=== PATIENT | female | born 1975 | race Caucasian/White ===

== ENCOUNTER 2020-03-22 22:31 | Observation (INO) ==
[2020-03-23] MEDS ORDERED: 0.9 % Sodium Chloride 1,000 ML IVC ONE (00:49)
[2020-03-23] MEDS ORDERED: *HR* FentaNYL (PF) 100 MCG/2 ML VIAL IVP ONE ×2 (01:00→05:44)
[2020-03-23 01:01] LABS: Bilirubin,Urine Negative (Negative); Blood,Urine Negative (Negative); Clarity,Urine Clear (Clear); Color,Urine Light-Yellow (Yellow); Glucose,Urine (UA) Normal (Normal); Ketones,Urine Negative (Negative); Leukocyte Esterase,Urine Negative (Negative); Nitrite,Urine Negative (Negative); Protein,Urine Trace mg/dL (Neg-Trace); Urobilinogen,Urine Normal (Normal)
[2020-03-23] MEDS ORDERED: Ondansetron 4 MG/2 ML VIAL IVP ONE (01:01)
[2020-03-23 01:12] LABS: Alanine Aminotransferase 14 Units/L (7-52); Albumin 4.3 g/dL (3.5-5.7); Albumin/Globulin Ratio 1.5 (1.1-2.2); Alkaline Phosphatase 43 Units/L (34-104); Aspartate Amino Transferase 17 Units/L (13-39); BUN/Creatinine Ratio 32 (6-26); Bilirubin,Indirect 0.2 mg/dL (0.0-1.0); Bilirubin,Total 0.2 mg/dL (0.3-1.0); Blood Urea Nitrogen 23 mg/dL (6-20); Calcium 9.5 mg/dL (8.6-10.3); Carbon Dioxide 28 mEq/L (23-29); Chloride 107 mEq/L (98-107); Globulin 2.8 g/dL (2.4-3.5); Glucose 95 mg/dL (70-105); Lipase 39 Units/L (11-82); Osmolality,Calculated 291 (280-300); Potassium 3.6 mEq/L (3.5-5.1); Sodium 139 mEq/L (136-145); Total Protein 7.1 g/dL (6.4-8.9); eGFR For African Americans > 60 (> 60); eGFR For Non-African Americans > 60 (> 60)
[2020-03-23] MEDS ORDERED: Isovue-370 500 ML BOTTLE IVP ONE (01:20)
[2020-03-23 01:22] LABS: Basophils # 0.1 K/mcL (0.0-0.2); Basophils % 0.8 %; Eosinophils # 0.7 K/mcL (0.0-0.6); Eosinophils % 5.3 %; Hematocrit 43.8 % (35.3-44.9); Hemoglobin 14.6 g/dL (11.5-15.4); Immature Granulocytes % 0.4 % (0-4); Mean Corpuscular HGB Conc 33.3 g/dL (31.6-35.5); Mean Corpuscular Hemoglobin 30.3 pg (28.0-33.3); Mean Corpuscular Volume 90.9 fL (83.0-100.0); Mean Platelet Volume 10.6 fL (9.4-12.4); Monocytes # 0.8 K/mcL (0.0-1.3); Neutrophils # 7.7 K/mcL (1.6-8.9); Platelet Count 309 K/mcL (140-400); Red Blood Count 4.82 M/mcL (3.82-4.97); Red Cell Distribution Width 13.5 % (11.5-14.5); Segmented Neutrophils % 57.5 %; White Blood Count 13.4 K/mcL (4.3-11.1)
[2020-03-23 01:54] LABS: Platelet Estimate Normal (Normal); Reactive Lymphocytes Present (Not Present)
[2020-03-23] MEDS ORDERED: Ondansetron 4 MG/2 ML VIAL IVP PRN (07:40)
[2020-03-23] MEDS ORDERED: Naloxone 0.4 MG/ML INJ IVP PRN (07:40)
[2020-03-23] MEDS ORDERED: *HR* OxyCODONE Immed Rel 5 MG TABLET PO PRN (07:40)
[2020-03-23] MEDS: *HR* HYDROcodone/Acet 5/325 mg TABLET PO PRN ×2 (09:57→20:53)
[2020-03-23] MEDS: Ringers Solution, Lactated 1,000 ML IVC SCH ×2 (09:58→20:52)
[2020-03-23 11:50] LABS: C-Reactive Protein < 5 mg/L (Less than 10)
[2020-03-23] MEDS ORDERED: MethylPREDNISolone 40 MG/ML VIAL IVP SCH (12:19)
[2020-03-23] MEDS ORDERED: methylPREDNISolone 125 MG/2 ML VIAL IVP ONE (12:29)
[2020-03-23] MEDS: Pantoprazole 40 MG VIAL IVP SCH (15:17)
[2020-03-23] MEDS: *HR* Heparin 5,000 UNIT/ML VIAL SQ SCH (17:36)
[2020-03-23] MEDS ORDERED: Nicotine 21 MG PATCH.TD24 TD SCH (20:00)
[2020-03-24 01:39] LABS: Basophils % 0.1 %; Hematocrit 42.3 % (35.3-44.9); Hemoglobin 14.2 g/dL (11.5-15.4); Immature Granulocytes % 0.3 % (0-4); Lymphocytes # 1.2 K/mcL (0.6-4.6); Lymphocytes % 17.7 %; Mean Corpuscular HGB Conc 33.6 g/dL (31.6-35.5); Mean Corpuscular Hemoglobin 30.6 pg (28.0-33.3); Mean Corpuscular Volume 91.2 fL (83.0-100.0); Mean Platelet Volume 10.5 fL (9.4-12.4); Monocytes # 0.1 K/mcL (0.0-1.3); Neutrophils # 5.5 K/mcL (1.6-8.9); Platelet Count 263 K/mcL (140-400); Red Blood Count 4.64 M/mcL (3.82-4.97); Red Cell Distribution Width 13.2 % (11.5-14.5); Segmented Neutrophils % 79.9 %; White Blood Count 6.9 K/mcL (4.3-11.1)
[2020-03-24 01:44] LABS: Prothrombin Time 11.9 Seconds (9.4-12.1)
[2020-03-24 01:47] LABS: Activated Partial Thrombo Time 30.1 Seconds (26.0-36.0)
[2020-03-24 02:05] LABS: BUN/Creatinine Ratio 21 (6-26); Blood Urea Nitrogen 14 mg/dL (6-20); Calcium 9.1 mg/dL (8.6-10.3); Carbon Dioxide 26 mEq/L (23-29); Chloride 105 mEq/L (98-107); Glucose 211 mg/dL (70-105); Magnesium 1.8 mg/dL (1.6-2.6); Osmolality,Calculated 293 (280-300); Phosphorous 3.6 mg/dL (2.7-4.5); Potassium 3.6 mEq/L (3.5-5.1); Sodium 138 mEq/L (136-145); eGFR For African Americans > 60 (> 60); eGFR For Non-African Americans > 60 (> 60)
[2020-03-24] MEDS: *HR* Heparin 5,000 UNIT/ML VIAL SQ SCH (06:43)
[2020-03-24 07:28] VITALS: BP 104/59
[2020-03-24] MEDS ORDERED: Metoclopramide 10 MG/2 ML VIAL IVP PRN (08:28)
[2020-03-24] MEDS: Pantoprazole 40 MG VIAL IVP SCH (08:29)
[2020-03-24] MEDS: *HR* HYDROcodone/Acet 5/325 mg TABLET PO PRN (08:36)
[2020-03-24] MEDS ORDERED: Cyanocobalamin (B-12) 1,000 MCG TABLET PO SCH (09:00)
[2020-03-24] MEDS ORDERED: Melatonin 3 MG TABLET PO SCH (21:00)
[2020-03-27 06:58] LABS: Serine Protease-3 Antibody 8 AU/mL (0-19)
== END 2020-03-24 11:02 | disposition home or self-care (01) ==
LOC: EMEROOARM 22:31 → CDU 22:31 → 3BNU 03-23 18:01
PROVIDERS: ADMIT Internal Medicine; ATTEND Internal Medicine

== ENCOUNTER 2020-08-17 18:59 | Inpatient (IN) ==
[2020-08-17 19:43] LABS: Bacteria,Urine Few per hpf (None-Few); Bilirubin,Urine Negative (Negative); Blood,Urine Negative (Negative); Clarity,Urine Turbid (Clear); Color,Urine Yellow (Yellow); Glucose,Urine (UA) Normal (Normal); Ketones,Urine Negative (Negative); Leukocyte Esterase,Urine Negative (Negative); Mucus,Urine Few per lpf (None-Few); Nitrite,Urine Negative (Negative); Protein,Urine Trace mg/dL (Neg-Trace); RBC,Urine 0-3 per hpf (0-3); Specific Gravity,Urine > 1.030 (1.010-1.025); Squamous Epithelial Cell,Urine Many per hpf (None-Few); WBC,Urine 0-3 per hpf (0-3)
[2020-08-17 19:46] LABS: Basophils # 0.1 K/mcL (0.0-0.2); Basophils % 0.5 %; Eosinophils # 0.4 K/mcL (0.0-0.6); Eosinophils % 2.8 %; Hemoglobin 14.8 g/dL (11.5-15.4); Immature Granulocytes % 0.3 % (0-4); Lymphocytes # 2.6 K/mcL (0.6-4.6); Lymphocytes % 17.9 %; Mean Corpuscular HGB Conc 33.6 g/dL (31.6-35.5); Mean Corpuscular Hemoglobin 30.5 pg (28.0-33.3); Mean Corpuscular Volume 90.5 fL (83.0-100.0); Mean Platelet Volume 10.1 fL (9.4-12.4); Monocytes # 0.9 K/mcL (0.0-1.3); Monocytes % 6.2 %; Neutrophils # 10.6 K/mcL (1.6-8.9); Platelet Count 306 K/mcL (140-400); Red Blood Count 4.86 M/mcL (3.82-4.97); Red Cell Distribution Width 13.6 % (11.5-14.5); Segmented Neutrophils % 72.3 %; White Blood Count 14.6 K/mcL (4.3-11.1)
[2020-08-17 19:49] LABS: Amphetamine Screen,Urine Negative ng/mL (Cutoff=1000); Barbiturate Screen,Urine Negative ng/mL (Cutoff=200); Benzodiazepines Screen,Urine Negative ng/mL (Cutoff=200); Cannabinoid Screen,Urine Negative ng/mL (Cutoff = 50); Cocaine Screen,Urine Negative ng/mL (Cutoff= 300); Opiate Screen,Urine Negative ng/mL (Cutoff=300); Phencyclidine Screen,Urine Negative ng/mL (Cutoff=25)
[2020-08-17 20:00] LABS: Acetaminophen < 10 mcg/mL (10-20); BUN/Creatinine Ratio 18 (6-26); Blood Urea Nitrogen 14 mg/dL (6-20); Calcium 9.6 mg/dL (8.6-10.3); Carbon Dioxide 26 mEq/L (23-29); Chloride 105 mEq/L (98-107); Chol/HDL Ratio 4.7 (0-4.9); Cholesterol 242 mg/dL (< 200); Ethanol < 10 mg/dL (Less than 10); Glucose 94 mg/dL (70-105); HDL Cholesterol 52 mg/dL (40-59); LDL Cholesterol,Calculated 162 mg/dL (< 100); Osmolality,Calculated 284 (280-300); Potassium 3.9 mEq/L (3.5-5.1); Salicylate < 2.5 mg/dL (15.0-30.0); Sodium 137 mEq/L (136-145); Triglycerides 142 mg/dL (< 150); eGFR For African Americans > 60 (> 60); eGFR For Non-African Americans > 60 (> 60)
[2020-08-17 20:36] LABS: Estimated Average Glucose 114 mg/dl; Hemoglobin A1C 5.6 %
[2020-08-17] MEDS ORDERED: haloperidoL 5 MG TABLET PO PRN (22:48)
[2020-08-17] MEDS ORDERED: *HR* LORazepam 1 MG TABLET PO PRN (22:48)
[2020-08-17] MEDS ORDERED: MOM Conc 10 ML UD.LIQ PO PRN (22:48)
[2020-08-17] MEDS ORDERED: *HR* LORazepam 2 MG/ML VIAL IM PRN (22:48)
[2020-08-17] MEDS ORDERED: Mag Hydrox/Al Hydrox/Simeth 30 ML UDC PO PRN (22:48)
[2020-08-17] MEDS ORDERED: Acetaminophen 325 MG TABLET PO PRN (22:48)
[2020-08-17] MEDS ORDERED: Haloperidol Lactate 5 MG/ML VIAL IM PRN (22:48)
[2020-08-18] MEDS: Topiramate 25 MG TABLET PO SCH ×2 (01:20→20:48)
[2020-08-18] MEDS: traZODone 50 MG TABLET PO PRN ×2 (01:20→20:45)
[2020-08-18] MEDS: hydrOXYzine pamoate 25 MG CAPSULE PO PRN ×2 (01:20→20:48)
[2020-08-18] MEDS: Nicotine 14 MG PATCH.TD24 TD SCH (08:46)
[2020-08-18] MEDS ORDERED: PARoxetine 30 MG TABLET PO SCH (09:00)
[2020-08-18] MEDS: EPA PO SCH (14:05)
[2020-08-18] MEDS: OMEGA PO SCH (14:05)
[2020-08-18] MEDS: DHA PO SCH (14:05)
[2020-08-18] MEDS: FISH OIL PO SCH (14:05)
[2020-08-18] MEDS ORDERED: Mirtazapine 15 MG TABLET PO SCH (21:00)
[2020-08-18] MEDS ORDERED: Topiramate 25 MG TABLET PO SCH (21:00)
[2020-08-19] MEDS: Cholecalciferol (D-3) 1,000 UNIT (25MCG) TABLET PO SCH (08:06)
[2020-08-19] MEDS: Nicotine 14 MG PATCH.TD24 TD SCH (08:06)
[2020-08-19] MEDS: hydrOXYzine pamoate 25 MG CAPSULE PO PRN ×2 (08:09→15:47)
[2020-08-19] MEDS: OMEGA PO SCH (08:10)
[2020-08-19] MEDS: FISH OIL PO SCH (08:10)
[2020-08-19] MEDS: DHA PO SCH (08:10)
[2020-08-19] MEDS: EPA PO SCH (08:10)
[2020-08-19] MEDS: Topiramate 25 MG TABLET PO SCH (20:46)
[2020-08-19] MEDS: traZODone 50 MG TABLET PO PRN (22:31)
[2020-08-20] MEDS: Nicotine 14 MG PATCH.TD24 TD SCH (09:29)
[2020-08-20] MEDS: Cholecalciferol (D-3) 1,000 UNIT (25MCG) TABLET PO SCH (09:30)
[2020-08-20] MEDS: OMEGA PO SCH (09:31)
[2020-08-20] MEDS: DHA PO SCH (09:31)
[2020-08-20] MEDS: FISH OIL PO SCH (09:31)
[2020-08-20] MEDS: EPA PO SCH (09:31)
[2020-08-20] MEDS: hydrOXYzine pamoate 25 MG CAPSULE PO PRN ×2 (12:16→20:17)
[2020-08-20] MEDS: Topiramate 25 MG TABLET PO SCH (20:17)
[2020-08-20] MEDS: traZODone 50 MG TABLET PO PRN (22:11)
[2020-08-21] MEDS: Nicotine 14 MG PATCH.TD24 TD SCH (08:50)
[2020-08-21] MEDS: Cholecalciferol (D-3) 1,000 UNIT (25MCG) TABLET PO SCH (08:50)
[2020-08-21] MEDS: hydrOXYzine pamoate 25 MG CAPSULE PO PRN ×2 (08:52→16:51)
[2020-08-21] MEDS: Topiramate 25 MG TABLET PO SCH (20:52)
[2020-08-21] MEDS ORDERED: Mirtazapine 15 MG TABLET PO SCH (21:00)
[2020-08-21] MEDS ORDERED: traZODone 50 MG TABLET PO SCH (21:00)
[2020-08-22 08:24] VITALS: BP 101/62
[2020-08-22] MEDS: Nicotine 14 MG PATCH.TD24 TD SCH (09:16)
[2020-08-22] MEDS: Cholecalciferol (D-3) 1,000 UNIT (25MCG) TABLET PO SCH (09:17)
[2020-08-22] MEDS: hydrOXYzine pamoate 25 MG CAPSULE PO PRN (09:19)
== END 2020-08-22 16:32 | disposition home or self-care (01) | DRG 751 ==
LOC: EMEROOARM 18:59 → 1ANU 22:44
PROVIDERS: ADMIT Psychiatry & Neurology Psychiatry; ATTEND Psychiatry & Neurology Psychiatry

== ENCOUNTER 2020-09-22 17:16 | Inpatient (IN) ==
[2020-09-22 18:52] LABS: Hyaline Casts,Urine Few per lpf (None Seen); Mucus,Urine Many per lpf (None-Few); RBC,Urine 0-3 per hpf (0-3); Squamous Epithelial Cell,Urine Moderate per hpf (None-Few); WBC,Urine 0-3 per hpf (0-3)
[2020-09-22 18:56] LABS: Amphetamine Screen,Urine Negative ng/mL (Cutoff=1000); Barbiturate Screen,Urine Negative ng/mL (Cutoff=200); Benzodiazepines Screen,Urine Negative ng/mL (Cutoff=200); Cannabinoid Screen,Urine Negative ng/mL (Cutoff = 50); Opiate Screen,Urine Negative ng/mL (Cutoff=300)
[2020-09-22 18:56] LABS: Basophils # 0.1 K/mcL (0.0-0.2); Basophils % 0.4 %; Eosinophils # 0.1 K/mcL (0.0-0.6); Hematocrit 45.9 % (35.3-44.9); Hemoglobin 15.4 g/dL (11.5-15.4); Immature Granulocytes % 0.4 % (0-4); Lymphocytes # 1.9 K/mcL (0.6-4.6); Lymphocytes % 13.7 %; Mean Corpuscular HGB Conc 33.6 g/dL (31.6-35.5); Mean Corpuscular Hemoglobin 30.8 pg (28.0-33.3); Mean Corpuscular Volume 91.8 fL (83.0-100.0); Mean Platelet Volume 9.8 fL (9.4-12.4); Monocytes # 0.8 K/mcL (0.0-1.3); Monocytes % 5.5 %; Neutrophils # 10.7 K/mcL (1.6-8.9); Platelet Count 258 K/mcL (140-400); Red Cell Distribution Width 12.6 % (11.5-14.5); White Blood Count 13.5 K/mcL (4.3-11.1)
[2020-09-22 19:28] LABS: Alanine Aminotransferase 10 Units/L (7-52); Albumin 4.4 g/dL (3.5-5.7); Alkaline Phosphatase 60 Units/L (34-104); Aspartate Amino Transferase 14 Units/L (13-39); BUN/Creatinine Ratio 24 (6-26); Bilirubin,Total 0.4 mg/dL (0.3-1.0); Blood Urea Nitrogen 24 mg/dL (6-20); Calcium 9.6 mg/dL (8.6-10.3); Carbon Dioxide 24 mEq/L (23-29); Chloride 108 mEq/L (98-107); Glucose 86 mg/dL (70-105); Osmolality,Calculated 289 (280-300); Potassium 3.8 mEq/L (3.5-5.1); Sodium 138 mEq/L (136-145); Thyroid Stimulating Hormone 2.008 mcIU/mL (0.340-5.600); eGFR For African Americans > 60 (> 60); eGFR For Non-African Americans > 60 (> 60)
[2020-09-22 19:43] LABS: Bilirubin,Direct 0.1 mg/dL (0.0-0.2); Bilirubin,Indirect 0.3 mg/dL (0.0-1.0)
[2020-09-22 19:44] LABS: Acetaminophen < 10 mcg/mL (10-20); Albumin/Globulin Ratio 1.5 (1.1-2.2); Ethanol < 10 mg/dL (Less than 10); Salicylate < 2.5 mg/dL (15.0-30.0); Total Protein 7.4 g/dL (6.4-8.9)
[2020-09-22 20:25] LABS: Cocaine Screen,Urine Negative ng/mL (Cutoff= 300); Phencyclidine Screen,Urine Negative ng/mL (Cutoff=25)
[2020-09-22 20:27] LABS: Bilirubin,Urine Small (Negative); Blood,Urine Negative (Negative); Clarity,Urine Clear (Clear); Color,Urine Yellow (Yellow); Glucose,Urine (UA) Normal (Normal); Ketones,Urine Negative (Negative); Leukocyte Esterase,Urine Negative (Negative); Nitrite,Urine Negative (Negative); Protein,Urine 100 mg/dL (Neg-Trace); Specific Gravity,Urine >= 1.030 (1.010-1.025); Urobilinogen,Urine Normal (Normal)
[2020-09-23] MEDS ORDERED: Ibuprofen 400 MG TABLET PO PRN (01:33)
[2020-09-23] MEDS ORDERED: Haloperidol Lactate 5 MG/ML VIAL IM PRN (01:33)
[2020-09-23] MEDS ORDERED: traZODone 50 MG TABLET PO PRN (01:33)
[2020-09-23] MEDS ORDERED: MOM Conc 10 ML UD.LIQ PO PRN (01:33)
[2020-09-23] MEDS ORDERED: *HR* LORazepam 2 MG/ML VIAL IM PRN (01:33)
[2020-09-23] MEDS ORDERED: haloperidoL 5 MG TABLET PO PRN (01:33)
[2020-09-23] MEDS ORDERED: *HR* LORazepam 1 MG TABLET PO PRN (01:33)
[2020-09-23] MEDS: Nicotine 14 MG PATCH.TD24 TD SCH (15:23)
[2020-09-23] MEDS: Mag Hydrox/Al Hydrox/Simeth 30 ML UDC PO PRN (20:39)
[2020-09-24] MEDS: Nicotine 14 MG PATCH.TD24 TD SCH (08:05)
[2020-09-24] MEDS ORDERED: QUEtiapine Fumarate 25 MG TABLET PO PRN (10:49)
[2020-09-24] MEDS: hydrOXYzine pamoate 25 MG CAPSULE PO PRN ×2 (11:22→20:45)
[2020-09-24] MEDS: Acetaminophen 325 MG TABLET PO PRN (20:44)
[2020-09-24] MEDS ORDERED: QUEtiapine Fumarate 25 MG TABLET PO SCH (21:00)
[2020-09-25] MEDS: Nicotine 14 MG PATCH.TD24 TD SCH (08:54)
[2020-09-25] MEDS: Mag Hydrox/Al Hydrox/Simeth 30 ML UDC PO PRN (10:10)
[2020-09-25] MEDS ORDERED: QUEtiapine Fumarate 25 MG TABLET PO PRN (11:18)
[2020-09-25] MEDS: Acetaminophen 325 MG TABLET PO PRN (20:26)
[2020-09-25] MEDS: hydrOXYzine pamoate 25 MG CAPSULE PO PRN (20:26)
[2020-09-25] MEDS ORDERED: QUEtiapine Fumarate 100 MG TABLET PO SCH (21:00)
[2020-09-26] MEDS: Nicotine 14 MG PATCH.TD24 TD SCH (08:40)
[2020-09-26] MEDS ORDERED: QUEtiapine Fumarate 25 MG TABLET PO PRN ×2 (10:58→10:59)
[2020-09-26] MEDS ORDERED: Petrolatum, White OINT.PACK TP PRN (11:22)
[2020-09-26] MEDS: QUEtiapine Fumarate 25 MG TABLET PO SCH ×3 (12:20→21:27)
[2020-09-26] MEDS: Acetaminophen 325 MG TABLET PO PRN (18:33)
[2020-09-26] MEDS ORDERED: QUEtiapine Fumarate 100 MG TABLET PO SCH (21:00)
[2020-09-26] MEDS: hydrOXYzine pamoate 25 MG CAPSULE PO PRN (21:27)
[2020-09-27] MEDS: Nicotine 14 MG PATCH.TD24 TD SCH (08:33)
[2020-09-27] MEDS: QUEtiapine Fumarate 25 MG TABLET PO SCH ×3 (08:35→21:23)
[2020-09-27] MEDS ORDERED: QUEtiapine Fumarate 100 MG TABLET PO SCH (10:35)
[2020-09-27] MEDS ORDERED: QUEtiapine Fumarate 25 MG TABLET PO SCH (21:00)
[2020-09-27] MEDS: hydrOXYzine pamoate 25 MG CAPSULE PO PRN (21:21)
[2020-09-28] MEDS: Nicotine 14 MG PATCH.TD24 TD SCH (08:41)
[2020-09-28] MEDS: QUEtiapine Fumarate 25 MG TABLET PO SCH ×3 (08:43→20:54)
[2020-09-28] MEDS: QUEtiapine Fumarate 100 MG TABLET PO SCH (20:53)
[2020-09-29] MEDS: QUEtiapine Fumarate 25 MG TABLET PO SCH ×3 (09:08→20:50)
[2020-09-29] MEDS: Nicotine 14 MG PATCH.TD24 TD SCH (09:08)
[2020-09-29] MEDS: hydrOXYzine pamoate 25 MG CAPSULE PO PRN (17:15)
[2020-09-29] MEDS: QUEtiapine Fumarate 100 MG TABLET PO SCH (20:50)
[2020-09-30] MEDS: Nicotine 14 MG PATCH.TD24 TD SCH (08:54)
[2020-09-30] MEDS: QUEtiapine Fumarate 25 MG TABLET PO SCH ×3 (08:54→21:05)
[2020-09-30] MEDS: Acetaminophen 325 MG TABLET PO PRN (12:55)
[2020-09-30] MEDS: hydrOXYzine pamoate 25 MG CAPSULE PO PRN (17:58)
[2020-09-30] MEDS: QUEtiapine Fumarate 100 MG TABLET PO SCH (21:05)
[2020-10-01] MEDS: Nicotine 14 MG PATCH.TD24 TD SCH (08:50)
[2020-10-01] MEDS: QUEtiapine Fumarate 25 MG TABLET PO SCH ×3 (08:50→20:54)
[2020-10-01] MEDS: hydrOXYzine pamoate 25 MG CAPSULE PO PRN ×2 (09:20→20:54)
[2020-10-01] MEDS: QUEtiapine Fumarate 100 MG TABLET PO SCH (20:54)
[2020-10-02] MEDS: QUEtiapine Fumarate 25 MG TABLET PO SCH ×2 (08:55→15:08)
[2020-10-02] MEDS: Nicotine 14 MG PATCH.TD24 TD SCH (09:13)
[2020-10-02 10:06] VITALS: BP 99/62
[2020-10-02] MEDS: hydrOXYzine pamoate 25 MG CAPSULE PO PRN (11:51)
== END 2020-10-02 17:00 | disposition home or self-care (01) | DRG 817 ==
LOC: EMEROOARM 17:16 → 1ANU 09-23 01:31
PROVIDERS: ADMIT Psychiatry & Neurology Psychiatry; ATTEND Psychiatry & Neurology Psychiatry